=== PATIENT | male | born 1980 | race Hispanic/Latino ===

== ENCOUNTER 2017-03-16 10:19 | Emergency (ER) | payer BC ==
[2017-03-16 10:24] VITALS: BP 135/89; PULSE 68; TEMP 97; O2SAT 97; BMI 25.0
[2017-03-16 12:21] LABS: BASO % 0.7 % (0.0-2.0); EOS # 0.1 K/uL (0.0-0.7); EOS % 1.2 % (0.0-4.0); HEMOGLOBIN 16.3 g/dL (12.0-18.0); LYMPH # 1.5 K/uL (1.0-4.3); LYMPH % 33.3 % (20.0-40.0); MEAN CELL VOLUME 92.3 fl (80.0-94.0); MEAN CORPUSCULAR HEMOGLOBIN 31.7 pg (27.0-31.0); MEAN CORPUSCULAR HGB CONC 34.4 g/dL (33.0-37.0); MEAN PLATELET VOLUME 9.6 fl (7.2-11.7); MONO # 0.4 K/uL (0.0-0.8); MONO % 8.4 % (0.0-10.0); NEUT # 2.6 K/uL (1.8-7.0); NEUT % 56.4 % (50.0-75.0); NRBC % 0.1 % (0.0-0.0); RBC 5.13 Mil/uL (4.40-5.90); RED CELL DISTRIBUTION WIDTH 12.9 % (11.5-14.5); WHITE BLOOD COUNT 4.5 K/uL (4.8-10.8)
[2017-03-16 12:30] LABS: ALB/GLOB RATIO 1.5 (1.0-2.1); ALBUMIN 4.6 g/dL (3.5-5.0); ALT/SGPT 41 U/L (21-72); AST/SGOT 23 U/L (17-59); BLOOD UREA NITROGEN 19 mg/dl (9-20); CALCIUM 9.8 mg/dL (8.4-10.2); GFR AFRICAN-AMERICAN > 60; GFR NON-AFRICAN AMERICAN > 60
[2017-03-16] MEDS ORDERED: Sodium Chloride 0.9% 1,000 ML IV STA (12:34)
--- NOTE | 2017-03-16 12:37 | CT ---
PROCEDURE: CT HEAD WITHOUT CONTRAST. HISTORY: Intermittent blurry vision COMPARISON: None available. TECHNIQUE: Axial computed tomography images were obtained through the head/brain without intravenous contrast. Radiation dose: Total exam DLP = 877.86 mGy-cm. This CT exam was performed using one or more of the following dose reduction techniques: Automated exposure control, adjustment of the mA and/or kV according to patient size, and/or use of iterative reconstruction technique. FINDINGS: HEMORRHAGE: No intracranial hemorrhage. BRAIN: Huizar-white matter differentiation is preserved. There is no mass, mass effect or abnormal extra-axial fluid collection. VENTRICLES: The ventricles are normal in size, shape and configuration. CALVARIUM: There is no calvarial fracture or extracranial soft tissue swelling. PARANASAL SINUSES: Predominantly clear. MASTOID AIR CELLS: Predominantly clear. OTHER FINDINGS: None. IMPRESSION: No acute intracranial abnormality. If there is a persistent focal neurologic deficit and an ongoing clinical concern for acute infarction, an MRI of the brain without intravenous contrast would be a more sensitive modality for evaluation of hyperacute/acute ischemic infarction.
--- NOTE | 2017-03-16 12:54 | ED PDOC ---
HPI: Eye Injury/Pain Time Seen by Provider: 03/16/17 10:56 Chief Complaint (Nursing): Eye Problem Chief Complaint (Provider): Blurry Vision History Per: Patient History/Exam Limitations: no limitations Onset/Duration Of Symptoms: Days (x2 months), Intermittent Episodes (20min ) Additional Complaint(s): Han Mcnally is a 37 year old male who presents to the emergency department complaining of intermittent episodes of blurry vision onset for 2 months, episode lasts ~10 minutes, resolves on its own. Patient also reports itchiness on right armpit after it, and not drinking enough water but when he does he urinates a lot. He is also complaining of right lower rib pain but denies pain at the moment. Also c/o pain at base of testicle and is concerned about prostate CA. PMD: Aba Gonzalez Past Medical History Reviewed: Historical Data, Nursing Documentation, Vital Signs Vital Signs: Last Vital Signs Temp 97 F L 03/16/17 10:23 Pulse 68 03/16/17 10:23 Resp BP 135/89 03/16/17 10:23 Pulse Ox 97 03/16/17 10:23 - Medical History PMH: No Chronic Diseases, Asthma - Surgical History Other surgeries: Achilles repair - Allergies Allergies/Adverse Reactions: Allergies Allergy/AdvReac Type Severity Reaction Status Date / Time No Known Allergies Allergy Verified 03/16/17 10:39 Review of Systems ROS Statement: Except As Marked, All Systems Reviewed And Found Negative Eyes: Positive for: Vision Change (intermittent episodes of blurry vision) Genitourinary Male: Positive for: Other (Not drinking enough water but when does , he urinates more than normal) Musculoskeletal: Positive for: Other (Right lower rib pain) Skin: Positive for: Other (itchiness on right armpit) Physical Exam - Reviewed Nursing Documentation Reviewed: Yes Vital Signs Reviewed: Yes - Physical Exam Appears: Positive for: Well, Non-toxic, No Acute Distress Head Exam: Positive for: ATRAUMATIC, NORMAL INSPECTION, NORMOCEPHALIC Skin: Positive for: Normal Color, Warm, Dry Eye Exam: Positive for: EOMI, Normal appearance, PERRL ENT: Positive for: Normal ENT Inspection Neck: Positive for: Normal, Painless ROM, Supple Cardiovascular/Chest: Positive for: Regular Rate, Rhythm Respiratory: Positive for: Normal Breath Sounds. Negative for: Respiratory Distress Gastrointestinal/Abdominal: Positive for: Normal Exam, Bowel Sounds, Soft Back: Positive for: Normal Inspection Extremity: Positive for: Normal ROM Neurologic/Psych: Positive for: Alert, Oriented - Laboratory Results Result Diagrams: 03/16/17 11:30 03/16/17 11:30 - ECG O2 Sat by Pulse Oximetry: 97 (RA) Pulse Ox Interpretation: Normal Medical Decision Making Medical Decision Making: Initial Impression: Blurry vision Initial Plan: --EKG --Comp Metabolic Panel --TSH --Urine dipstick --NS IV 1,000 ml at 1,000 mls/hr --Glucose, blood, POC --Urinalysis --reevaluation Time: 12:45 FINDINGS: HEMORRHAGE: No intracranial hemorrhage. BRAIN: Huizar-white matter differentiation is preserved. There is no mass, mass effect or abnormal extra-axial fluid collection. VENTRICLES: The ventricles are normal in size, shape and configuration. CALVARIUM: There is no calvarial fracture or extracranial soft tissue swelling. PARANASAL SINUSES: Predominantly clear. MASTOID AIR CELLS: Predominantly clear. OTHER FINDINGS: None. IMPRESSION: No acute intracranial abnormality. If there is a persistent focal neurologic deficit and an ongoing clinical concern for acute infarction, an MRI of the brain without intravenous contrast would be a more sensitive modality for evaluation of hyperacute/acute ischemic infarction. Scribe Attestation: Documented by Julio Echeverria, acting as a scribe for Mireya Simmons MD. Provider Scribe Attestation: All medical record entries made by the Scribe were at my direction and personally dictated by me. I have reviewed the chart and agree that the record accurately reflects my personal performance of the history, physical exam, medical decision making, and the department course for this patient. I have also personally directed, reviewed, and agree with the discharge instructions and disposition. Disposition - Clinical Impression Clinical Impression: History of blurred vision, Elevated random blood glucose level - Disposition Referrals: Tru Mcdonald MD [Staff Provider] - Aba Gonzalez MD [Staff Provider] - French Evans MD [Staff Provider] - Disposition: Routine/Home Disposition Time: 15:17 Condition: STABLE Instructions: Blurred Vision (ED) Forms: [employer] (E[place]ian)
[2017-03-16 13:59] LABS: URINE BILIRUBIN NEGATIVE (NEGATIVE); URINE BLOOD NEGATIVE (NEGATIVE); URINE CLARITY CLEAR (Clear); URINE COLOR YELLOW (YELLOW); URINE GLUCOSE (UA) NEG (Normal); URINE LEUKOCYTE ESTERASE NEG Leu/uL (Negative); URINE NITRATE NEGATIVE (NEGATIVE); URINE PROTEIN NEGATIVE (NEGATIVE); URINE UROBILINOGEN 0.2-1.0 mg/dL (0.2-1.0)
--- NOTE | 2017-03-16 15:48 | CARD ---
APPROVED REPORT EKG Measurement Heart [id number] <Conclusion> Normal sinus rhythm Normal ECG
== END 2017-03-16 15:33 | disposition home or self-care (01) ==
LOC: H.ER 10:19
DX: R73.9 Hyperglycemia, unspecified (principal); H53.8 Other visual disturbances
CPT/HCPCS: 70450; 80053; 81003; 82948; 84443; 85025; 93005; 96360; 99284; J7040